=== PATIENT | male | born 1985 | race Caucasian/White ===

== ENCOUNTER 2019-09-01 19:29 | Inpatient (IN) | payer OTHER ==
[~2019-09-01 19:29] MED LIST: Iopamidol 370 76% 100 ML VIAL ONE; Iopamidol-370 76% 500 ML 1 ML ONE; PHENYLEPHRINE-NS 100 MCG/ML 10 ML SYRINGE ONE; Rocuronium Bromide 10 MG/ML (10ML VIAL) ONE; Vecuronium 10 MG VIAL ONE
[2019-09-01] MEDS ORDERED: CEFAZOLIN 1 GM VIAL ONE (19:34)
[2019-09-01] MEDS ORDERED: Adacel (T-DAP) 0.5 ML SYRINGE ONE ×2 (19:35→19:39)
[2019-09-01 19:47] LABS: Hemoglobin 13.6 g/dL (14.0-18.0); Mean Corpuscular HGB CONC 34.8 g/dL (32.0-36.0); Mean Corpuscular Hemoglobin 30.8 pg (27.0-31.0); Mean Corpuscular Volume 88.4 fL (78.0-98.0); Mean Platelet Volume 7.1 fL (7.4-10.4); Platelet Count 314 thou/uL (130-400); RBC Distribution Width 11.3 % (11.5-14.5); Red Blood Cell (RBC) Count 4.42 mill/uL (4.70-6.10); White Blood Cell (WBC) Count 26.5 thou/uL (4.8-10.8)
[2019-09-01] MEDS ORDERED: fentaNYL Citrate/PF 2,000 MCG in Sodium Chloride 0.9% 60 ML IV SCH (19:49)
[2019-09-01] MEDS ORDERED: Fentanyl 100 MCG/2 ML VIAL ONE ×2 (19:53→20:56)
[2019-09-01] MEDS ORDERED: Succinylcholine Chloride 20 MG/ML 10 ml SYRINGE FS ONE (19:54)
[2019-09-01 19:55] LABS: INR-International Normal Ratio 1.1; PTT 25.7 sec (22.9-36.1); Prothrombin Time 13.7 sec (12.0-14.7)
[2019-09-01 19:58] LABS: Bacteria/HPF None Seen HPF (None Seen); Bilirubin Negative (Negative); Blood, Urine 3+ (Negative); Clarity Turbid (Clear); Glucose, Urine (Dipstick) Normal (Negative); Ketone, Urine Negative (Negative); Leukocyte 25 Leu/uL (Negative); Nitrite Negative (Negative); Protein, Urine (Dipstick) 100 mg/dL (Neg-Trace); RBC/HPF Greater than 50 HPF (0-3); Specific Gravity, Urine 1.025 (1.002-1.036); Squamous Epithelial 0-3 HPF (0-3); Urobilinogen Normal mg/dL (Less than 2); WBC/HPF 21-50 HPF (0-3)
[2019-09-01 19:59] LABS: ALT (SGPT) 217 U/L (8-55); AST (SGOT) 407 U/L (5-34); Albumin 3.8 g/dL (3.5-5.0); Alcohol Less than 10 mg/dL (Less than 10); Alkaline Phosphatase 118 U/L (40-110); Anion Gap 11 mmol/L (10-20); BUN (Urea Nitrogen) 23 mg/dL (8.9-20.6); Bilirubin, Total 0.4 mg/dL (0.2-1.2); Calc. Creatinine Clearance 0 mL/min (70-130); Calcium 8.4 mg/dL (7.8-10.44); Carbon Dioxide 24 mmol/L (22-29); Chloride 106 mmol/L (98-107); Estimated GFR-MDRD 80; Globulin 2.8 g/dL (2.4-3.5); Glucose 109 mg/dL (70-105); Lipase 33 U/L (8-78); Protein, Total 6.6 g/dL (6.0-8.3); Sodium 137 mmol/L (136-145)
[2019-09-01 20:03] LABS: Amphetamine Detected (NotDetected); Barbiturates Screen Not Detected (NotDetected); Benzodiazepine Screen Not Detected (NotDetected); Cocaine Metabolite Screen Not Detected (NotDetected); Medtox Control Line Valid? VALID (VALID); Medtox Reader # READER 4; Methadone Not Detected (NotDetected); Methamphetamine Detected (NotDetected); Opiate Screen Not Detected (NotDetected); Oxycodone Screen Not Detected (NotDetected); Phencyclidine (PCP) Not Detected (NotDetected); THC/Cannabinoid Screen Not Detected (NotDetected); Tricyclic Screen Not Detected (NotDetected)
[2019-09-01 20:07] LABS: Band 23 % (5-11); Eosinophils 1 % (0-10); Lymphocytes 9 % (21-51); MDiff Complete? YES; Monocytes 1 % (0-10); Neutrophil 62 % (42-75); Platelet Morphology Comment Appears Adequate; Polychromasia SLIGHT = 2-3 cells (100X) (0-2/hpf); Reactive Lymphocytes 4 % (0-10)
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
[2019-09-01] MEDS ORDERED: Dextrose 5% in Water 1,000 ML IV PRN (20:27)
[2019-09-01] MEDS ORDERED: HumaLOG 300 UNITS/3 ML VIAL SC PRN (20:27)
[2019-09-01] MEDS ORDERED: Propofol 1,000 MG/100 ML VIAL IV ONE (20:27)
[2019-09-01] MEDS ORDERED: Dextrose 50% Abboject 50 ML SYRINGE SLOW IVP PRN (20:27)
[2019-09-01] MEDS ORDERED: Ondansetron PF 4 MG/2 ML Vial IVP PRN (20:27)
[2019-09-01] MEDS ORDERED: Ventilator Sedation Protocol 1 EACH FS ONE (20:30)
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
[2019-09-01] MEDS ORDERED: CEFAZOLIN 2 GM in Premix Bag 1 BAG IVPB SCH (20:45)
[2019-09-01 20:46] LABS: Actual Bicarbonate (HCO3a) 21.3 mEq/L (22-28); Analyzer IN Cardio ER; Base Excess (BEa) -4.3 mEq/L (-2.0 to +3.0); CO2 Tension 41.2 mmHg (35.0-45.0); Calcium, Ionized (arterial) 1.16 mmol/L (1.12-1.30); Carboxyhemoglobin (COHb) 0.4 gm% (0.0-3.0); Hemoglobin (Hb) 14.2 g/dL (14.0-18.0); Potassium - ABG Lab 3.94 mmol/L (3.70-5.30); pH, Arterial 7.33 (7.35-7.45)
[2019-09-01 20:47] LABS: O2 Tension (PaO2), arterial 514.8 mmHg (80.0-100.0); Puncture Site L FEMORAL
[2019-09-01] MEDS ORDERED: DISCONTINUE PREVIOUS NARCOTIC PAIN MEDICATIONS AND BENZODIAZEPINES FS SCH (20:48)
[2019-09-01] MEDS ORDERED: Propofol BOLUS 1,000 MG/100 ML VIAL IV PRN (20:48)
[2019-09-01] MEDS ORDERED: Fentanyl BOLUS 250 ML IVPB PRN (20:48)
[2019-09-01] MEDS ORDERED: Morphine 2 MG/ML VIAL SLOW IVP PRN (20:48)
[2019-09-01] MEDS ORDERED: Lorazepam 2 MG/ML VIAL SLOW IVP PRN (20:48)
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
[2019-09-01] MEDS ORDERED: Lidocaine 2% w/Epinephrine 1:200K 20 ML VIAL ONE (21:00)
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
--- NOTE | 2019-09-01 21:14 | RAD ---
LEFT WRIST RADIOGRAPHS THREE VIEWS: 09/01/19 PROVIDED CLINICAL HISTORY: Pain status post injury. FINDINGS: There is a markedly comminuted, mildly displaced intra-articular fracture involving the distal radius . There is a displaced ulnar styloid fracture. There is a comminuted displaced fracture which is intr a-articular involving the base of the thumb metacarpal. There is possible cortical irregularity invol ving the radial aspects of the scaphoid waist. This is seen on the oblique view and not reproduced on the additional views. IMPRESSION: 1. Distal radial and ulnar fractures as described. 2. Comminuted intra-articular base of thumb metacarpal fracture. 3. Possible nondisplaced scaphoid waist fracture. POS: CAROLYN
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
[2019-09-01] MEDS ORDERED: Bacitracin Zinc Ointment 30 gm TUBE ONE (23:43)
[2019-09-02] MEDS: Sodium Chloride 0.9% 1,000 ML IV SCH ×4 (00:35→23:55)
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
[2019-09-02] MEDS: Propofol 1,000 MG/100 ML VIAL IV PRN ×4 (02:13→23:49)
[2019-09-02] MEDS: CEFAZOLIN 2 GM in Premix Bag 1 BAG IVPB SCH ×2 (04:17→12:11)
[2019-09-02] MEDS: Famotidine/PF 20 mg/2ml Vial SLOW IVP SCH ×3 (04:18→12:10)
[2019-09-02 04:49] LABS: #Lymphocytes 0.8 thou/uL (1.20-3.40); #Neutrophils 13.8 thou/uL (1.40-6.50); %Basophils 0.1 % (0.0-1.0); %Monocytes 6.1 % (0.0-10.0); %Neutrophils 88.8 % (42.0-75.0); Hemoglobin 10.7 g/dL (14.0-18.0); Mean Corpuscular HGB CONC 34.1 g/dL (32.0-36.0); Mean Corpuscular Hemoglobin 30.5 pg (27.0-31.0); Mean Corpuscular Volume 89.5 fL (78.0-98.0); Mean Platelet Volume 6.9 fL (7.4-10.4); Platelet Count 218 thou/uL (130-400); RBC Distribution Width 11.4 % (11.5-14.5); Red Blood Cell (RBC) Count 3.51 mill/uL (4.70-6.10); White Blood Cell (WBC) Count 15.5 thou/uL (4.8-10.8)
[2019-09-02 05:08] LABS: Anion Gap 9 mmol/L (10-20); BUN (Urea Nitrogen) 20 mg/dL (8.9-20.6); Calc. Creatinine Clearance 134 mL/min (70-130); Calcium 7.4 mg/dL (7.8-10.44); Carbon Dioxide 25 mmol/L (22-29); Chloride 108 mmol/L (98-107); Estimated GFR-MDRD Greater than 90; Glucose 121 mg/dL (70-105); Potassium 4.1 mmol/L (3.5-5.1); Sodium 138 mmol/L (136-145)
[2019-09-02 05:10] LABS: ALT (SGPT) 159 U/L (8-55); AST (SGOT) 269 U/L (5-34); Alkaline Phosphatase 84 U/L (40-110); Bilirubin, Direct 0.3 mg/dL (0.1-0.3); Bilirubin, Total 0.4 mg/dL (0.2-1.2)
[2019-09-02] MEDS: fentaNYL Citrate/PF 2,000 MCG in Sodium Chloride 0.9% 60 ML IV SCH (05:19)
[2019-09-02] MEDS ORDERED: Fentanyl 100 MCG/2 ML VIAL SLOW IVP SCH (07:30)
[2019-09-02] MEDS ORDERED: Vecuronium 10 MG VIAL IVP SCH (07:30)
[2019-09-02] MEDS ORDERED: Midazolam HCl 2 mg/2 ml Vial SLOW IVP SCH (07:30)
[2019-09-02 07:33] LABS: Actual Bicarbonate (HCO3a) 23.7 mEq/L (22-28); Base Excess (BEa) -1.9 mEq/L (-2.0 to +3.0); CO2 Tension 44.2 mmHg (35.0-45.0); Calcium, Ionized (arterial) 1.06 mmol/L (1.12-1.30); Carboxyhemoglobin (COHb) 0.3 gm% (0.0-3.0); O2 Tension (PaO2), arterial 150.5 mmHg (80.0-100.0); Potassium - ABG Lab 3.86 mmol/L (3.70-5.30); pH, Arterial 7.35 (7.35-7.45)
[2019-09-02 07:44] LABS: Puncture Site L.B.
--- NOTE | 2019-09-02 07:49 | RAD ---
EXAM: 2 views of the right forearm HISTORY: Radius and ulnar fractures COMPARISON: 09/01/2019 at 8:17 PM FINDINGS/IMPRESSION: The patient is status post ORIF of fractures of the distal third of the radius a nd ulna with plates and screws. No perihardware lucency is seen.
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
--- NOTE | 2019-09-02 08:05 | RAD ---
RIGHT FEMUR 2 VIEWS: Date: 09/02/2019 HISTORY: Fracture right femoral shaft. FINDINGS/IMPRESSION: There has been interval reduction and internal fixation of the displaced fracture of the shaft of the right femur since earlier exam at 2023 hours with placement of an intramedullary mariposa and interlockin g screws. POS: OFF
[2019-09-02] MEDS ORDERED: PROPOFOL 200 MG/20 ML VIAL ONE (08:59)
[2019-09-02] MEDS ORDERED: Rocuronium Bromide 10 MG/ML (10ML VIAL) ONE (08:59)
[2019-09-02] MEDS ORDERED: Vecuronium 10 MG VIAL ONE ×2 (08:59→10:49)
[2019-09-02] MEDS ORDERED: PHENYLEPHRINE-NS 100 MCG/ML 10 ML SYRINGE ONE (08:59)
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
[2019-09-02] MEDS ORDERED: Midazolam HCl 2 mg/2 ml Vial ONE ×2 (10:35→23:11)
[2019-09-02] MEDS ORDERED: Lidocaine 1% w/Epinephrine 1:100K 20 ML VIAL ONE ×2 (10:35→16:23)
--- NOTE | 2019-09-02 14:23 | PRG ---
DATE OF SERVICE: 09/02/2019 This is Brandin Sadler PA-C dictating a report for Chris Pagan MD. SUBJECTIVE: I went to see patient this morning. He was intubated and sedated. OBSERVATIONS: VITAL SIGNS: Vital signs were stable. Pulse was little high at a low 100s, but afebrile. GENERAL: Again, he was intubated. When he is off his sedation, he is sitting up per the nurse, but right now, he is not following any commands. EXTREMITIES: He does retract his extremities to noxious stimuli. Dressings are all clean, dry, and intact. ASSESSMENT: Ortho, stable. PLAN: We will check on patient daily. Job ID: [id number]
[2019-09-02 14:28] LABS: SARS-CoV-2 MS2 Positive; SARS-CoV-2 N Gene Negative; SARS-CoV-2 S Gene Negative; SARS-CoV-2 by NAA Not Detected (NotDetected); SARS-CoV-2 orf1ab Negative
[2019-09-02] MEDS ORDERED: Hydrocortisone 1% Cream 30 GM TUBE ONE (16:23)
[2019-09-02] MEDS ORDERED: Chlorhexidine Gluconate 15 ML UDCUP SSP ONE (16:23)
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
[2019-09-02] MEDS ORDERED: Fentanyl 100 MCG/2 ML VIAL ONE ×2 (17:20→23:11)
[2019-09-02] MEDS ORDERED: Bacitracin Zinc Ointment 30 gm TUBE ONE (19:19)
[2019-09-02] MEDS ORDERED: Sodium Chloride 0.9% 10 ML ONE (19:19)
[2019-09-02] MEDS ORDERED: Bupivacaine PF 0.5% 30 ML VIAL ONE (19:19)
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
--- NOTE | 2019-09-02 23:44 | RAD ---
Exam: XR Wrist Lt 2 View HISTORY: ORIF left wrist COMPARISON: 09/01/2019 FINDINGS/IMPRESSION: 12 intraoperative fluoroscopic images of the left wrist are provided. Images demonstrate postoperativ e changes involving the distal left radial metaphysis with initial images demonstrate multiple pins in place in the distal radius with final image demonstrating a volar plate and multiple screws transf ixing the comminuted fracture distal left radial metaphysis. A single screw is seen extending through the scaphoid bone. 3 pins transfix the comminuted fracture base of the metacarpal thumb. Frac ture ulnar styloid process is again seen. Correlation intraoperative findings is recommended. Fluoroscopy: Time-232 seconds Dose-4.75 mGy
[2019-09-03 00:46] LABS: Hemoglobin 9.2 g/dL (14.0-18.0); Platelet Count 161 thou/uL (130-400)
[2019-09-03] MEDS: fentaNYL Citrate/PF 2,000 MCG in Sodium Chloride 0.9% 60 ML IV SCH ×2 (00:57→20:14)
[2019-09-03 00:59] LABS: Anion Gap 9 mmol/L (10-20); BUN (Urea Nitrogen) 15 mg/dL (8.9-20.6); Calc. Creatinine Clearance 146 mL/min (70-130); Carbon Dioxide 25 mmol/L (22-29); Chloride 111 mmol/L (98-107); Estimated GFR-MDRD Greater than 90; Glucose 138 mg/dL (70-105); Potassium 4.1 mmol/L (3.5-5.1); Sodium 141 mmol/L (136-145)
[2019-09-03] MEDS: Famotidine/PF 20 mg/2ml Vial SLOW IVP SCH ×3 (01:00→20:25)
[2019-09-03] MEDS: Vancomycin 1 GM in Premix Bag 1 BAG IVPB SCH ×2 (02:13→14:57)
[2019-09-03] MEDS: Propofol 1,000 MG/100 ML VIAL IV PRN ×2 (05:07→12:13)
[2019-09-03 05:39] LABS: CKMB 53.2 ng/mL (0-6.6)
[2019-09-03 08:02] LABS: Actual Bicarbonate (HCO3a) 27.2 mEq/L (22-28); Base Excess (BEa) 2.1 mEq/L (-2.0 to +3.0); CO2 Tension 44.9 mmHg (35.0-45.0); Calcium, Ionized (arterial) 0.99 mmol/L (1.12-1.30); Carboxyhemoglobin (COHb) 0.3 gm% (0.0-3.0); O2 Tension (PaO2), arterial 157.2 mmHg (80.0-100.0); Potassium - ABG Lab 3.78 mmol/L (3.70-5.30)
[2019-09-03] MEDS: Ascorbic Acid 500 mg Chewable Tablet PER TUBE SCH ×2 (09:53→20:25)
[2019-09-03] MEDS: Chlorhexidine Gluconate 15 ML UDCUP SSP SCH ×2 (09:54→20:25)
[2019-09-03] MEDS: Sodium Chloride 0.9% 1,000 ML IV SCH ×3 (09:54→20:42)
[2019-09-03 10:20] LABS: Actual Bicarbonate (HCO3a) 26.1 mEq/L (22-28); Base Excess (BEa) 1.4 mEq/L (-2.0 to +3.0); CO2 Tension 41.7 mmHg (35.0-45.0); Calcium, Ionized (arterial) 0.98 mmol/L (1.12-1.30); O2 Tension (PaO2), arterial 150.4 mmHg (80.0-100.0); Potassium - ABG Lab 3.76 mmol/L (3.70-5.30); pH, Arterial 7.42 (7.35-7.45)
[2019-09-03 10:21] LABS: ALV-art Gradient 2709.975 (0-20); Puncture Site L.B.
[2019-09-03 10:22] LABS: ALV-art Gradient 82.675 (0-20); Puncture Site L.B.
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
[2019-09-03] MEDS ORDERED: Calcium Chloride 13.6 MEQ in Sodium Chloride 0.9% 100 ML IVPB SCH (12:15)
[2019-09-03] MEDS ORDERED: Bacitracin Zinc Ointment 30 gm TUBE TOP PRN (13:48)
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
[2019-09-03] MEDS: Diazepam 5 MG TAB PO PRN (20:25)
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
[2019-09-04] MEDS ORDERED: Acetaminophen 650 MG/20.3 ML UDCUP PO PRN (00:52)
[2019-09-04] MEDS ORDERED: traMADol HCl 50 MG TAB PER TUBE PRN (00:56)
[2019-09-04] MEDS: Vancomycin 1 GM in Premix Bag 1 BAG IVPB SCH ×2 (01:29→14:33)
[2019-09-04] MEDS: Acetaminophen 650 MG/20.3 ML UDCUP PER TUBE SCH ×4 (01:29→18:38)
[2019-09-04] MEDS ORDERED: Haloperidol Lactate 5 MG/ML VIAL SLOW IVP SCH (02:45)
[2019-09-04] MEDS: Morphine 4 MG/ML VIAL SLOW IVP PRN ×5 (04:23→21:18)
[2019-09-04] MEDS: Sodium Chloride 0.9% 1,000 ML IV SCH ×2 (05:46→14:34)
[2019-09-04] MEDS: traMADol HCl 50 MG TAB PER TUBE SCH ×3 (05:47→18:16)
[2019-09-04] MEDS: Diazepam 5 MG TAB PO PRN ×2 (07:55→16:43)
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
[2019-09-04] MEDS: Famotidine/PF 20 mg/2ml Vial SLOW IVP SCH ×2 (08:30→20:52)
[2019-09-04] MEDS: Ascorbic Acid 500 mg Chewable Tablet PER TUBE SCH ×2 (08:30→20:53)
[2019-09-04] MEDS: Chlorhexidine Gluconate 15 ML UDCUP SSP SCH ×2 (08:30→20:52)
[2019-09-04] MEDS: Gabapentin 300 MG CAP PO SCH ×2 (08:30→20:52)
[2019-09-04] MEDS ORDERED: Sodium Bicarbonate Tab 325 MG TAB PER TUBE PRN (15:10)
[2019-09-04] MEDS ORDERED: Pancrelipase DR 12,000 1 CAP FS PRN (15:10)
[2019-09-04 16:54] LABS: #Lymphocytes 0.8 thou/uL (1.20-3.40); #Monocytes 0.5 thou/uL (0.11-0.59); #Neutrophils 6.1 thou/uL (1.40-6.50); %Basophils 0.5 % (0.0-1.0); %Eosinophils 0.3 % (0.0-10.0); %Lymphocytes 10.6 % (21.0-51.0); %Monocytes 6.6 % (0.0-10.0); %Neutrophils 82.1 % (42.0-75.0); Hemoglobin 6.2 g/dL (14.0-18.0); Mean Corpuscular HGB CONC 35.8 g/dL (32.0-36.0); Mean Corpuscular Hemoglobin 32.7 pg (27.0-31.0); Mean Corpuscular Volume 91.4 fL (78.0-98.0); Mean Platelet Volume 7.2 fL (7.4-10.4); Platelet Count 121 thou/uL (130-400); Red Blood Cell (RBC) Count 1.91 mill/uL (4.70-6.10); White Blood Cell (WBC) Count 7.5 thou/uL (4.8-10.8)
[2019-09-04 17:10] LABS: Anion Gap 9 mmol/L (10-20); BUN (Urea Nitrogen) 18 mg/dL (8.9-20.6); Calc. Creatinine Clearance 191 mL/min (70-130); Calcium 7.3 mg/dL (7.8-10.44); Carbon Dioxide 27 mmol/L (22-29); Chloride 109 mmol/L (98-107); Estimated GFR-MDRD Greater than 90; Glucose 149 mg/dL (70-105); Magnesium 1.8 mg/dL (1.6-2.6); Potassium 3.5 mmol/L (3.5-5.1); Sodium 141 mmol/L (136-145)
[2019-09-04 17:19] LABS: Phosphorus 1.7 mg/dL (2.3-4.7)
[2019-09-04] MEDS ORDERED: Magnesium Sulfate 4 GM in Sodium Chloride 0.9% 250 ML 250 ML IVPB SCH (17:45)
[2019-09-04] MEDS ORDERED: Potassium Phosphate 30 MMOL in Sodium Chloride 0.9% 250 ML 250 ML IVPB SCH (17:45)
[2019-09-04] MEDS ORDERED: cefTRIAXone\\ROCEPHIN 1 GM in Sodium Chloride 0.9% 100 ML IVPB SCH (18:00)
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
[2019-09-04] MEDS ORDERED: Morphine 2 MG/ML VIAL SLOW IVP PRN (21:01)
[2019-09-04] MEDS ORDERED: Calcium Chloride 1 GM/10 ML Abboject SYRINGE IVP SCH (21:15)
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
[2019-09-04 21:35] LABS: Hemoglobin 7.1 g/dL (14.0-18.0); Platelet Count 124 thou/uL (130-400)
[2019-09-05] MEDS: Piperacillin/Tazobactam 3.375 GM in Sodium Chloride 0.9% 100 ML IVPB SCH ×4 (00:06→18:20)
[2019-09-05] MEDS: Diazepam 5 MG TAB PO PRN ×4 (00:06→23:13)
[2019-09-05] MEDS: Sodium Chloride 0.9% 1,000 ML IV SCH ×2 (00:06→08:32)
[2019-09-05] MEDS: Acetaminophen 650 MG/20.3 ML UDCUP PER TUBE SCH ×5 (00:06→23:58)
[2019-09-05] MEDS: traMADol HCl 50 MG TAB PER TUBE SCH ×5 (00:07→23:58)
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
[2019-09-05] MEDS: Morphine 4 MG/ML VIAL SLOW IVP PRN ×6 (02:07→21:12)
[2019-09-05 04:02] LABS: #Lymphocytes 0.9 thou/uL (1.20-3.40); #Monocytes 0.6 thou/uL (0.11-0.59); #Neutrophils 5.7 thou/uL (1.40-6.50); %Basophils 0.4 % (0.0-1.0); %Eosinophils 0.5 % (0.0-10.0); %Lymphocytes 12.7 % (21.0-51.0); %Monocytes 7.5 % (0.0-10.0); %Neutrophils 78.9 % (42.0-75.0); Hemoglobin 6.9 g/dL (14.0-18.0); Mean Corpuscular HGB CONC 34.6 g/dL (32.0-36.0); Mean Corpuscular Hemoglobin 31.3 pg (27.0-31.0); Mean Corpuscular Volume 90.3 fL (78.0-98.0); Mean Platelet Volume 7.1 fL (7.4-10.4); Platelet Count 148 thou/uL (130-400); RBC Distribution Width 11.1 % (11.5-14.5); White Blood Cell (WBC) Count 7.3 thou/uL (4.8-10.8)
[2019-09-05 04:22] LABS: Anion Gap 8 mmol/L (10-20); BUN (Urea Nitrogen) 14 mg/dL (8.9-20.6); Calc. Creatinine Clearance 191 mL/min (70-130); Calcium 7.6 mg/dL (7.8-10.44); Carbon Dioxide 29 mmol/L (22-29); Chloride 111 mmol/L (98-107); Estimated GFR-MDRD Greater than 90; Glucose 139 mg/dL (70-105); Potassium 3.6 mmol/L (3.5-5.1); Sodium 144 mmol/L (136-145)
[2019-09-05 04:32] LABS: Phosphorus 1.6 mg/dL (2.3-4.7)
[2019-09-05] MEDS ORDERED: Potassium Phosphate 15 MMOL in Sodium Chloride 0.9% 250 ML 250 ML IVPB SCH (06:30)
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
[2019-09-05] MEDS: Chlorhexidine Gluconate 15 ML UDCUP SSP SCH ×2 (08:34→21:11)
[2019-09-05] MEDS: Famotidine/PF 20 mg/2ml Vial SLOW IVP SCH ×2 (08:34→21:11)
[2019-09-05] MEDS: Ascorbic Acid 500 mg Chewable Tablet PER TUBE SCH ×2 (08:34→21:11)
[2019-09-05] MEDS: Gabapentin 300 MG CAP PO SCH ×2 (08:34→21:11)
[2019-09-05] MEDS ORDERED: Iopamidol 370 76% 100 ML VIAL ONE (11:11)
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
--- NOTE | 2019-09-05 17:19 | OP ---
DATE OF PROCEDURE: 09/02/2019 PREOPERATIVE DIAGNOSES: Panfacial fracture, right mandibular parasymphyseal fracture displaced open. POSTOPERATIVE DIAGNOSES: Panfacial fracture, right mandibular parasymphyseal fracture displaced open. BRANCH ACCOUNT EXECUTIVE: Dr. Tino Joseph. ESTIMATED BLOOD LOSS: Less than 50 mL. ANESTHESIA: General endotracheal anesthesia. The patient currently has trach. FLUIDS: 1 L of isotonic crystalloid solution. SPECIMENS: None. FINDINGS: Right displaced open parasymphyseal fracture of the mandible extending between teeth #26 and #27. No mobility of dentition of the mandible was noted. DISPOSITION: PACU INDICATIONS FOR PROCEDURE: On day of surgery, discussed treatment options and recommendations with via telephone. Recommended multistaged approach with initial stage to include establishing lower third vertical pillars to include open reduction and internal fixation of right mandibular parasymphyseal fracture in the operating room. elected to continue with recommended procedure. Discussed risks, benefits, indications, alternatives with . DESCRIPTION OF PROCEDURE: The patient was transferred to operating room C and placed on the operating room table in supine position. Cardiopulmonary monitors were applied. The patient was deemed a good candidate to undergo general anesthesia. He was induced in state of general anesthesia. The patient was prepped and draped in standard sterile fashion. Peridex oral rinse scrub was performed. Throat pack was placed. We turned our attention to the maxilla with the application of Petros arch bars using 24-gauge stainless steel wires. Petros arch bars were applied to the maxillary dentition and to the mandibular dentition. Tooth #30 noted to have a localized abscess with mild mobility, elected to extract tooth #30, using a 15 blade made a sulcular incision along site #30. Minimal full-thickness periosteal dissection was performed using a surgical handpiece with a 1.6 fissure bur under sterile saline irrigation, sectioned tooth #30, delivered tooth #30 with elevators, curettage of site, bone file, and saline irrigation. Anesthesia was replaced. Next, we turned our attention to the right mandibular anterior vestibule. Using a Bovie cautery set at 20/20 blend, we made an incision approximately 1 cm anterior to the mucogingival junction through mucosa down through underlying muscle through underlying periosteum. Full-thickness mucoperiosteal dissection was performed. Mental nerve was identified. Skeletonization of mental nerve was performed. The patient was placed in maxillary mandibular fixation. Occlusion was noted to be good when applied into MMF. Next, using one 4-hole titanium plate as a tension band, plate along the superior border placed 6 mm monocortical screws. Next, using a 1.5 mm 6-hole plate placed along the inferior border using bicortical fixation with 4 titanium screws was performed. The patient was released from MMF, occlusion noted to be stable. Copious sterile saline irrigation of surgical site. Then, using 4-0 Vicryl sutures, reapproximated the mentalis muscle in submucosal reapproximation and closed with multiple interrupted in the continuous running suture along the mucosa using 4-0 chromic gut. At this point, procedure was deemed complete. The patient was transferred to the PACU in stable condition. Job ID: [id number]
[2019-09-05 19:44] LABS: Hemoglobin 7.8 g/dL (14.0-18.0); Platelet Count 173 thou/uL (130-400)
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
[2019-09-05] MEDS ORDERED: Haloperidol Lactate 5 MG/ML VIAL IM SCH (23:45)
[2019-09-06 00:07] LABS: Hemoglobin 8.1 g/dL (14.0-18.0); Platelet Count 186 thou/uL (130-400)
[2019-09-06 01:01] LABS: CKMB 18.4 ng/mL (0-6.6); Critical Call CKMB RESULT DECREASING
[2019-09-06] MEDS ORDERED: diphenhydrAMINE 50 MG/ML VIAL IVP SCH (01:45)
[2019-09-06] MEDS: Morphine 4 MG/ML VIAL SLOW IVP PRN ×4 (01:50→17:36)
[2019-09-06 04:33] LABS: #Lymphocytes 1.1 thou/uL (1.20-3.40); #Monocytes 0.8 thou/uL (0.11-0.59); #Neutrophils 7.6 thou/uL (1.40-6.50); %Basophils 0.2 % (0.0-1.0); %Eosinophils 0.5 % (0.0-10.0); %Monocytes 8.6 % (0.0-10.0); %Neutrophils 79.7 % (42.0-75.0); Hemoglobin 7.9 g/dL (14.0-18.0); Mean Corpuscular HGB CONC 33.7 g/dL (32.0-36.0); Mean Corpuscular Hemoglobin 30.5 pg (27.0-31.0); Mean Corpuscular Volume 90.5 fL (78.0-98.0); Mean Platelet Volume 6.8 fL (7.4-10.4); Platelet Count 203 thou/uL (130-400); RBC Distribution Width 11.4 % (11.5-14.5); White Blood Cell (WBC) Count 9.6 thou/uL (4.8-10.8)
[2019-09-06 04:54] LABS: Anion Gap 8 mmol/L (10-20); BUN (Urea Nitrogen) 11 mg/dL (8.9-20.6); Calc. Creatinine Clearance 207 mL/min (70-130); Calcium 7.8 mg/dL (7.8-10.44); Carbon Dioxide 29 mmol/L (22-29); Chloride 110 mmol/L (98-107); Estimated GFR-MDRD Greater than 90; Glucose 128 mg/dL (70-105); Magnesium 1.8 mg/dL (1.6-2.6); Potassium 3.1 mmol/L (3.5-5.1); Sodium 144 mmol/L (136-145)
[2019-09-06 04:57] LABS: Phosphorus 2.1 mg/dL (2.3-4.7)
[2019-09-06] MEDS: Acetaminophen 650 MG/20.3 ML UDCUP PER TUBE SCH ×3 (05:52→20:02)
[2019-09-06] MEDS: traMADol HCl 50 MG TAB PER TUBE SCH ×3 (05:52→17:35)
[2019-09-06] MEDS ORDERED: Potassium Phosphate 30 MMOL, Magnesium Sulfate 2 GM in Sodium Chloride 0.9% 250 ML 250 ML IVPB SCH ×2 (06:30→08:30)
[2019-09-06] MEDS ORDERED: Magnesium 2 GM/50 ML 2 GM in Premix Bag 1 BAG IVPB SCH (06:30)
--- NOTE | 2019-09-06 07:42 | RAD ---
EXAM: Single view of the chest HISTORY: Pneumonia COMPARISON: CT abdomen/pelvis 09/05/2019 FINDINGS: Single view of the chest shows a normal sized cardiomediastinal silhouette. A tracheostomy is seen in good position in the trachea. A left subclavian central venous catheter seen with its tip in the superior vena cava. There is free air beneath the right hemidiaphragm. The gastrostomy tub e is not definitely seen on this exam. Opacity in the left lung base likely represents a pleural effusion and adjacent atelectasis. Post surgical changes seen in the left clavicle. IMPRESSION: 1. Stable free air beneath the diaphragm. 2. Left pleural effusion with adjacent atelectasis
[2019-09-06] MEDS: Famotidine/PF 20 mg/2ml Vial SLOW IVP SCH ×2 (09:18→20:03)
[2019-09-06] MEDS: Ascorbic Acid 500 mg Chewable Tablet PER TUBE SCH ×2 (09:19→20:03)
[2019-09-06] MEDS: Chlorhexidine Gluconate 15 ML UDCUP SSP SCH ×2 (09:19→20:03)
[2019-09-06] MEDS: Enoxaparin Sodium 40 MG/0.4 ML SYRINGE SC SCH (09:19)
[2019-09-06] MEDS: Diazepam 5 MG TAB PO PRN (09:20)
[2019-09-06] MEDS: Gabapentin 300 MG CAP PO SCH ×2 (09:20→20:03)
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
[2019-09-06] MEDS: Piperacillin/Tazobactam 3.375 GM in Sodium Chloride 0.9% 100 ML IVPB SCH (17:36)
[2019-09-06] MEDS: clonazePAM 0.5 MG TAB PO SCH ×2 (17:36→20:03)
[2019-09-06] MEDS ORDERED: SMX/TMP 800-160mg/20 ML UDCUP PO SCH (21:00)
[2019-09-06] MEDS ORDERED: Senokot 8.6 MG TAB PO SCH (21:00)
[2019-09-07] MEDS: Piperacillin/Tazobactam 3.375 GM in Sodium Chloride 0.9% 100 ML IVPB SCH ×4 (00:24→17:32)
[2019-09-07] MEDS: traMADol HCl 50 MG TAB PER TUBE SCH ×4 (00:25→17:31)
[2019-09-07] MEDS: Acetaminophen 650 MG/20.3 ML UDCUP PER TUBE SCH ×4 (00:25→20:30)
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
[2019-09-07] MEDS ORDERED: Polyethylene Glycol 3350 17 GM Packet PER TUBE SCH (09:00)
[2019-09-07] MEDS: clonazePAM 0.5 MG TAB PO SCH ×3 (09:01→20:32)
[2019-09-07] MEDS: Ascorbic Acid 500 mg Chewable Tablet PER TUBE SCH ×2 (09:01→20:33)
[2019-09-07] MEDS: Gabapentin 300 MG CAP PO SCH ×2 (09:01→20:33)
[2019-09-07] MEDS: Chlorhexidine Gluconate 15 ML UDCUP SSP SCH ×2 (09:02→20:36)
[2019-09-07] MEDS: Enoxaparin Sodium 40 MG/0.4 ML SYRINGE SC SCH (09:02)
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
[2019-09-07] MEDS: Morphine 4 MG/ML VIAL SLOW IVP PRN (20:37)
[2019-09-08] MEDS: Piperacillin/Tazobactam 3.375 GM in Sodium Chloride 0.9% 100 ML IVPB SCH ×3 (00:14→12:33)
[2019-09-08] MEDS: Acetaminophen 650 MG/20.3 ML UDCUP PER TUBE SCH ×4 (00:15→19:46)
[2019-09-08] MEDS: traMADol HCl 50 MG TAB PER TUBE SCH ×4 (00:15→17:27)
[2019-09-08 03:44] LABS: #Eosinphils 0.3 thou/uL (0.0-0.7); #Lymphocytes 1.5 thou/uL (1.20-3.40); #Monocytes 0.8 thou/uL (0.11-0.59); #Neutrophils 5.9 thou/uL (1.40-6.50); %Basophils 0.2 % (0.0-1.0); %Eosinophils 3.8 % (0.0-10.0); %Lymphocytes 17.2 % (21.0-51.0); %Monocytes 9.7 % (0.0-10.0); %Neutrophils 69.2 % (42.0-75.0); Mean Corpuscular HGB CONC 32.6 g/dL (32.0-36.0); Mean Corpuscular Hemoglobin 30.2 pg (27.0-31.0); Mean Corpuscular Volume 92.5 fL (78.0-98.0); Mean Platelet Volume 6.6 fL (7.4-10.4); Platelet Count 311 thou/uL (130-400); RBC Distribution Width 11.9 % (11.5-14.5); Red Blood Cell (RBC) Count 2.97 mill/uL (4.70-6.10); White Blood Cell (WBC) Count 8.5 thou/uL (4.8-10.8)
[2019-09-08 04:25] LABS: Anion Gap 8 mmol/L (10-20); BUN (Urea Nitrogen) 15 mg/dL (8.9-20.6); Calc. Creatinine Clearance 220 mL/min (70-130); Calcium 8.2 mg/dL (7.8-10.44); Carbon Dioxide 29 mmol/L (22-29); Chloride 105 mmol/L (98-107); Estimated GFR-MDRD Greater than 90; Glucose 148 mg/dL (70-105); Magnesium 1.8 mg/dL (1.6-2.6); Phosphorus 3.9 mg/dL (2.3-4.7); Potassium 3.1 mmol/L (3.5-5.1); Sodium 139 mmol/L (136-145)
[2019-09-08] MEDS: Enoxaparin Sodium 40 MG/0.4 ML SYRINGE SC SCH (08:22)
[2019-09-08] MEDS: Gabapentin 300 MG CAP PO SCH ×2 (08:22→19:46)
[2019-09-08] MEDS: Ascorbic Acid 500 mg Chewable Tablet PER TUBE SCH ×2 (08:22→19:45)
[2019-09-08] MEDS: clonazePAM 0.5 MG TAB PO SCH ×3 (08:25→19:46)
[2019-09-08] MEDS: Chlorhexidine Gluconate 15 ML UDCUP SSP SCH ×2 (08:25→19:46)
[2019-09-08] MEDS ORDERED: Potassium Chloride 40 MEQ, Magnesium Sulfate 2 GM in Sodium Chloride 0.9% 250 ML 250 ML IVPB SCH (08:45)
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
--- NOTE | 2019-09-08 15:59 | EKG ---
Test Reason : FILIBERTO Blood Pressure : / mmHG Vent. Rate : 107 BPM Atrial Rate : 107 BPM P-R Int : 130 ms QRS Dur : 084 ms QT Int : 362 ms P-R-T Axes : 061 081 058 degrees QTc Int : [address] elevation consider inferior injury or acute infarct vs pericarditis vs early repol. Abnormal ECG When compared with ECG of 01-SEP-2019 20:15, (Unconfirmed) No significant change was found Confirmed by BRANDIE NICOLE M.D. ([id number]) on 09/08/2019 3:59:03 PM Referred By: ANNY Confirmed By:BRANDIE NICOLE M.D.
[2019-09-08] MEDS ORDERED: cefTRIAXone\\ROCEPHIN 1 GM in Sodium Chloride 0.9% 100 ML IVPB SCH (17:00)
[2019-09-09] MEDS: traMADol HCl 50 MG TAB PER TUBE SCH ×5 (00:16→23:01)
[2019-09-09] MEDS: Acetaminophen 650 MG/20.3 ML UDCUP PER TUBE SCH ×4 (00:16→19:06)
[2019-09-09 04:12] LABS: #Eosinphils 0.4 thou/uL (0.0-0.7); #Lymphocytes 1.9 thou/uL (1.20-3.40); #Neutrophils 8.8 thou/uL (1.40-6.50); %Basophils 0.4 % (0.0-1.0); %Eosinophils 3.2 % (0.0-10.0); %Lymphocytes 15.4 % (21.0-51.0); %Monocytes 8.4 % (0.0-10.0); %Neutrophils 72.7 % (42.0-75.0); Hemoglobin 10.1 g/dL (14.0-18.0); Mean Corpuscular HGB CONC 32.6 g/dL (32.0-36.0); Mean Platelet Volume 6.5 fL (7.4-10.4); Platelet Count 398 thou/uL (130-400); Red Blood Cell (RBC) Count 3.36 mill/uL (4.70-6.10); White Blood Cell (WBC) Count 12.1 thou/uL (4.8-10.8)
[2019-09-09 04:31] LABS: Anion Gap 11 mmol/L (10-20); BUN (Urea Nitrogen) 15 mg/dL (8.9-20.6); Calc. Creatinine Clearance 216 mL/min (70-130); Calcium 8.5 mg/dL (7.8-10.44); Carbon Dioxide 27 mmol/L (22-29); Chloride 103 mmol/L (98-107); Estimated GFR-MDRD Greater than 90; Glucose 105 mg/dL (70-105); Magnesium 1.9 mg/dL (1.6-2.6); Phosphorus 3.8 mg/dL (2.3-4.7); Potassium 4.2 mmol/L (3.5-5.1); Sodium 137 mmol/L (136-145)
[2019-09-09] MEDS ORDERED: Magnesium Sulfate 3 GM in Sodium Chloride 0.9% 250 ML 250 ML IVPB SCH (06:45)
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
[2019-09-09] MEDS ORDERED: PROPOFOL 200 MG/20 ML VIAL ONE (09:36)
[2019-09-09] MEDS ORDERED: PHENYLEPHRINE-NS 100 MCG/ML 10 ML SYRINGE ONE (09:36)
[2019-09-09] MEDS: Enoxaparin Sodium 40 MG/0.4 ML SYRINGE SC SCH (09:52)
[2019-09-09] MEDS: Chlorhexidine Gluconate 15 ML UDCUP SSP SCH ×2 (09:57→23:00)
[2019-09-09] MEDS: Ascorbic Acid 500 mg Chewable Tablet PER TUBE SCH ×2 (09:57→23:00)
[2019-09-09] MEDS: Gabapentin 300 MG CAP PO SCH ×2 (09:57→23:00)
[2019-09-09] MEDS: clonazePAM 0.5 MG TAB PO SCH ×3 (09:58→23:00)
[2019-09-09] MEDS ORDERED: Calcium Carbonate 500 MG ChewTAB PO PRN (11:41)
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
[2019-09-09] MEDS ORDERED: Fentanyl 250 MCG/5 ML VIAL ONE ×2 (16:38→18:29)
[2019-09-09] MEDS: cefTRIAXone\\ROCEPHIN 2 GM in Sodium Chloride 0.9% 100 ML IVPB SCH (16:38)
[2019-09-09] MEDS ORDERED: Lidocaine 1% w/Epinephrine 1:100K 20 ML VIAL ONE (16:45)
[2019-09-09] MEDS ORDERED: Chlorhexidine Gluconate 15 ML UDCUP SSP ONE (16:45)
[2019-09-09] MEDS ORDERED: Hydrocortisone 1% Cream 30 GM TUBE ONE (16:45)
[2019-09-09] MEDS ORDERED: Phenylephrine 10 MG/ML VIAL ONE ×2 (17:55→18:30)
[2019-09-09] MEDS ORDERED: AFRIN NASAL MIST 15 ML BOT ONE (18:18)
[2019-09-09] MEDS ORDERED: Bacitracin Zinc Ointment 30 gm TUBE ONE (18:18)
[2019-09-09] MEDS ORDERED: Ondansetron HCl/PF 4 MG/2 ML Vial IVP PRN (20:31)
[2019-09-09] MEDS ORDERED: HYDROmorphone 2 MG/ML VIAL SLOW IVP PRN (20:31)
[2019-09-09] MEDS ORDERED: Promethazine HCl 25 MG/ML VIAL SLOW IVP PRN (20:31)
[2019-09-09] MEDS ORDERED: Fentanyl 100 MCG/2 ML VIAL ONE (21:54)
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
[2019-09-09] MEDS: Morphine 4 MG/ML VIAL SLOW IVP PRN (23:14)
[2019-09-10] MEDS ORDERED: traMADol HCl 50 MG TAB PER TUBE SCH (00:45)
[2019-09-10] MEDS: Acetaminophen 650 MG/20.3 ML UDCUP PER TUBE SCH ×4 (00:46→16:25)
[2019-09-10 03:07] LABS: #Eosinphils 0.1 thou/uL (0.0-0.7); #Lymphocytes 1.8 thou/uL (1.20-3.40); #Monocytes 1.3 thou/uL (0.11-0.59); #Neutrophils 12.4 thou/uL (1.40-6.50); %Basophils 0.2 % (0.0-1.0); %Eosinophils 0.8 % (0.0-10.0); %Lymphocytes 11.2 % (21.0-51.0); %Monocytes 8.6 % (0.0-10.0); %Neutrophils 79.2 % (42.0-75.0); Hemoglobin 9.6 g/dL (14.0-18.0); Mean Corpuscular HGB CONC 33.4 g/dL (32.0-36.0); Mean Corpuscular Hemoglobin 30.7 pg (27.0-31.0); Mean Corpuscular Volume 91.9 fL (78.0-98.0); Mean Platelet Volume 6.6 fL (7.4-10.4); Platelet Count 436 thou/uL (130-400); RBC Distribution Width 12.1 % (11.5-14.5); Red Blood Cell (RBC) Count 3.14 mill/uL (4.70-6.10); White Blood Cell (WBC) Count 15.6 thou/uL (4.8-10.8)
[2019-09-10 03:32] LABS: Anion Gap 11 mmol/L (10-20); BUN (Urea Nitrogen) 19 mg/dL (8.9-20.6); Calc. Creatinine Clearance 177 mL/min (70-130); Calcium 8.4 mg/dL (7.8-10.44); Carbon Dioxide 27 mmol/L (22-29); Chloride 101 mmol/L (98-107); Estimated GFR-MDRD Greater than 90; Glucose 156 mg/dL (70-105); Phosphorus 3.7 mg/dL (2.3-4.7); Potassium 4.4 mmol/L (3.5-5.1); Sodium 135 mmol/L (136-145)
[2019-09-10] MEDS: Morphine 4 MG/ML VIAL SLOW IVP PRN (04:21)
[2019-09-10] MEDS: traMADol HCl 50 MG TAB PER TUBE SCH ×3 (06:07→16:24)
[2019-09-10 06:13] VITALS: BMI 23.8
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
[2019-09-10] MEDS: Ascorbic Acid 500 mg Chewable Tablet PER TUBE SCH ×2 (11:12→22:08)
[2019-09-10] MEDS: cloNIDine 0.1 MG TAB PO SCH ×3 (11:12→22:07)
[2019-09-10] MEDS: Chlorhexidine Gluconate 15 ML UDCUP SSP SCH ×2 (11:12→22:08)
[2019-09-10] MEDS: clonazePAM 0.5 MG TAB PO SCH ×3 (11:12→22:08)
[2019-09-10] MEDS: Gabapentin 300 MG CAP PO SCH ×2 (11:12→22:07)
[2019-09-10] MEDS: Enoxaparin Sodium 40 MG/0.4 ML SYRINGE SC SCH (11:13)
[2019-09-10] MEDS: Bacitracin Zinc Ointment 30 gm TUBE TOP SCH ×3 (11:14→22:09)
[2019-09-10] MEDS: cefTRIAXone\\ROCEPHIN 2 GM in Sodium Chloride 0.9% 100 ML IVPB SCH (16:23)
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
[2019-09-10 18:56] LABS: #Eosinphils 0.2 thou/uL (0.0-0.7); #Lymphocytes 1.8 thou/uL (1.20-3.40); #Monocytes 1.5 thou/uL (0.11-0.59); #Neutrophils 13.6 thou/uL (1.40-6.50); %Basophils 0.2 % (0.0-1.0); %Lymphocytes 10.4 % (21.0-51.0); %Monocytes 8.9 % (0.0-10.0); %Neutrophils 79.6 % (42.0-75.0); Hemoglobin 9.8 g/dL (14.0-18.0); Mean Corpuscular HGB CONC 34.1 g/dL (32.0-36.0); Mean Corpuscular Hemoglobin 31.6 pg (27.0-31.0); Mean Corpuscular Volume 92.5 fL (78.0-98.0); Mean Platelet Volume 6.5 fL (7.4-10.4); Platelet Count 440 thou/uL (130-400); RBC Distribution Width 12.2 % (11.5-14.5); Red Blood Cell (RBC) Count 3.09 mill/uL (4.70-6.10); White Blood Cell (WBC) Count 17.1 thou/uL (4.8-10.8)
[2019-09-11] MEDS: traMADol HCl 50 MG TAB PER TUBE SCH ×4 (00:06→18:37)
[2019-09-11] MEDS: Acetaminophen 650 MG/20.3 ML UDCUP PER TUBE SCH ×4 (00:07→21:47)
[2019-09-11] MEDS: cloNIDine 0.1 MG TAB PO SCH ×4 (05:04→20:51)
[2019-09-11 06:05] LABS: Magnesium 1.8 mg/dL (1.6-2.6); Phosphorus 4.2 mg/dL (2.3-4.7)
[2019-09-11] MEDS: Gabapentin 300 MG CAP PO SCH ×2 (08:07→20:52)
[2019-09-11] MEDS: Ascorbic Acid 500 mg Chewable Tablet PER TUBE SCH ×2 (08:07→20:52)
[2019-09-11] MEDS: clonazePAM 0.5 MG TAB PO SCH ×3 (08:07→20:51)
[2019-09-11] MEDS: Enoxaparin Sodium 40 MG/0.4 ML SYRINGE SC SCH (08:07)
[2019-09-11] MEDS: Chlorhexidine Gluconate 15 ML UDCUP SSP SCH ×2 (08:08→20:51)
[2019-09-11] MEDS: Bacitracin Zinc Ointment 30 gm TUBE TOP SCH ×3 (08:08→20:56)
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
[2019-09-11] MEDS: cefTRIAXone\\ROCEPHIN 2 GM in Sodium Chloride 0.9% 100 ML IVPB SCH (17:25)
[2019-09-11] MEDS: Dexamethasone 4 mg/ml Vial SLOW IVP SCH (18:38)
[2019-09-12] MEDS: Acetaminophen 650 MG/20.3 ML UDCUP PER TUBE SCH ×4 (00:06→18:13)
[2019-09-12] MEDS: Dexamethasone 4 mg/ml Vial SLOW IVP SCH ×3 (00:07→12:53)
[2019-09-12] MEDS: traMADol HCl 50 MG TAB PER TUBE SCH ×4 (00:07→18:13)
[2019-09-12] MEDS: Cyclobenzaprine 10 MG TAB PO PRN ×2 (01:28→22:17)
[2019-09-12] MEDS: cloNIDine 0.1 MG TAB PO SCH ×4 (05:18→22:17)
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
[2019-09-12] MEDS: Gabapentin 300 MG CAP PO SCH ×2 (10:25→22:17)
[2019-09-12] MEDS: Ascorbic Acid 500 mg Chewable Tablet PER TUBE SCH ×2 (10:25→22:16)
[2019-09-12] MEDS: Chlorhexidine Gluconate 15 ML UDCUP SSP SCH ×3 (10:26→22:16)
[2019-09-12] MEDS: Enoxaparin Sodium 40 MG/0.4 ML SYRINGE SC SCH (10:26)
[2019-09-12] MEDS: clonazePAM 0.5 MG TAB PO SCH ×3 (10:26→22:16)
[2019-09-12] MEDS: Bacitracin Zinc Ointment 30 gm TUBE TOP SCH ×3 (10:28→22:16)
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
[2019-09-12] MEDS: cefTRIAXone\\ROCEPHIN 2 GM in Sodium Chloride 0.9% 100 ML IVPB SCH (16:06)
[2019-09-12] MEDS: Melatonin 3 MG TAB PO PRN (22:17)
[2019-09-13] MEDS: Acetaminophen 650 MG/20.3 ML UDCUP PER TUBE SCH ×4 (00:21→17:47)
[2019-09-13] MEDS: traMADol HCl 50 MG TAB PER TUBE SCH ×3 (00:21→12:54)
[2019-09-13] MEDS: cloNIDine 0.1 MG TAB PO SCH ×4 (04:32→21:00)
[2019-09-13] MEDS: Cyclobenzaprine 10 MG TAB PO PRN ×2 (05:52→17:50)
[2019-09-13] MEDS: Enoxaparin Sodium 40 MG/0.4 ML SYRINGE SC SCH (09:36)
[2019-09-13] MEDS: Chlorhexidine Gluconate 15 ML UDCUP SSP SCH ×2 (09:37→20:47)
[2019-09-13] MEDS: Gabapentin 300 MG CAP PO SCH (09:37)
[2019-09-13] MEDS: clonazePAM 0.5 MG TAB PO SCH ×3 (09:38→20:47)
[2019-09-13] MEDS: Ascorbic Acid 500 mg Chewable Tablet PER TUBE SCH ×2 (09:38→20:47)
[2019-09-13] MEDS: Bacitracin Zinc Ointment 30 gm TUBE TOP SCH ×3 (09:39→23:45)
[2019-09-13] MEDS: Pantoprazole 40 MG GRANULES PACKET PO SCH (12:57)
[2019-09-13] MEDS ORDERED: traMADol HCl 50 MG TAB PER TUBE PRN (13:50)
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
[2019-09-13] MEDS: cefTRIAXone\\ROCEPHIN 2 GM in Sodium Chloride 0.9% 100 ML IVPB SCH (16:14)
[2019-09-13] MEDS ORDERED: Sodium Chloride 0.65% Nasal 44 ML BOT EA NARE PRN (17:09)
[2019-09-13] MEDS ORDERED: Pseudoephedrine HCl 30 MG TAB PO PRN (17:09)
[2019-09-13] MEDS ORDERED: Oxymetazoline HCl 0.05% (30 ML BOT) NS PRN (17:21)
[2019-09-13] MEDS: Gabapentin 100 MG CAP PO SCH (20:47)
[2019-09-13] MEDS: Melatonin 3 MG TAB PO PRN (20:47)
[2019-09-13] MEDS: Acetaminophen/Codeine 120-12MG/5 ML UDCUP PO PRN (20:48)
[2019-09-13] MEDS ORDERED: Haloperidol Lactate 5 MG/ML VIAL ONE (22:35)
[2019-09-13] MEDS ORDERED: Haloperidol Lactate 5 MG/ML VIAL IM SCH (22:45)
[2019-09-13] MEDS ORDERED: diphenhydrAMINE 50 MG/ML VIAL IM PRN (23:23)
[2019-09-14] MEDS: Acetaminophen 650 MG/20.3 ML UDCUP PER TUBE SCH ×4 (01:19→17:25)
[2019-09-14] MEDS: Acetaminophen/Codeine 120-12MG/5 ML UDCUP PO PRN (02:36)
[2019-09-14] MEDS: cloNIDine 0.1 MG TAB PO SCH ×3 (05:02→17:18)
[2019-09-14] MEDS: Ascorbic Acid 500 mg Chewable Tablet PER TUBE SCH (07:46)
[2019-09-14] MEDS: Chlorhexidine Gluconate 15 ML UDCUP SSP SCH (07:46)
[2019-09-14] MEDS: Pantoprazole 40 MG GRANULES PACKET PO SCH (07:46)
[2019-09-14] MEDS: Gabapentin 100 MG CAP PO SCH (07:46)
[2019-09-14] MEDS: clonazePAM 0.5 MG TAB PO SCH ×2 (07:46→17:18)
[2019-09-14] MEDS: Enoxaparin Sodium 40 MG/0.4 ML SYRINGE SC SCH (07:47)
[2019-09-14] MEDS: Bacitracin Zinc Ointment 30 gm TUBE TOP SCH ×2 (07:57→17:18)
[2019-09-14 11:39] VITALS: TEMP 98.3
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
[2019-09-14 17:19] VITALS: BP 123/80
[2019-09-14] MEDS: Cyclobenzaprine 10 MG TAB PO PRN (17:24)
[2019-09-14] MEDS ORDERED: Oxymetazoline HCl 0.05% (30 ML BOT) NS PRN (17:42)
== END 2019-09-14 18:27 | disposition home or self-care (01) | DRG 3 ==
LOC: EDBD 19:29 → ERS 19:29 → IMCU/EMU 21:19 → CCU 21:19 → SDC/OP 21:34 → CCU 23:00 → IMCU/EMU 09-05 20:15 → SJJU 09-11 12:17 → SURG A 09-11 15:30
PROVIDERS: ADMIT Specialist; ATTEND Specialist
PROC: 0QS806Z Reposition Right Femoral Shaft with Intramedullary Internal Fixation Device, Open Approach (ICD-10-PCS; 2019-09-01)
PROC: 5A1955Z Respiratory Ventilation, Greater than 96 Consecutive Hours (ICD-10-PCS; 2019-09-01)
PROC: 0PSH04Z Reposition Right Radius with Internal Fixation Device, Open Approach (ICD-10-PCS; 2019-09-01)
PROC: 0PSK04Z Reposition Right Ulna with Internal Fixation Device, Open Approach (ICD-10-PCS; 2019-09-01)
PROC: 0PSHXZZ Reposition Right Radius, External Approach (ICD-10-PCS; 2019-09-01)
PROC: 0QSCXZZ Reposition Left Lower Femur, External Approach (ICD-10-PCS; 2019-09-01)
PROC: 0B113F4 Bypass Trachea to Cutaneous with Tracheostomy Device, Percutaneous Approach (ICD-10-PCS; principal; 2019-09-02)
PROC: 0PSS34Z Reposition Left Thumb Phalanx with Internal Fixation Device, Percutaneous Approach (ICD-10-PCS; 2019-09-02)
PROC: 0PSJ04Z Reposition Left Radius with Internal Fixation Device, Open Approach (ICD-10-PCS; 2019-09-02)
PROC: 0PSN04Z Reposition Left Carpal with Internal Fixation Device, Open Approach (ICD-10-PCS; 2019-09-02)
PROC: 0DH63UZ Insertion of Feeding Device into Stomach, Percutaneous Approach (ICD-10-PCS; 2019-09-02)
PROC: 0NST04Z Reposition Right Mandible with Internal Fixation Device, Open Approach (ICD-10-PCS; 2019-09-04)
PROC: 0CDWXZ0 Extraction of Upper Tooth, Single, External Approach (ICD-10-PCS; 2019-09-04)
PROC: 30233N1 Transfusion of Nonautologous Red Blood Cells into Peripheral Vein, Percutaneous Approach (ICD-10-PCS; 2019-09-04)
PROC: 0NS104Z Reposition Frontal Bone with Internal Fixation Device, Open Approach (ICD-10-PCS; 2019-09-09)
PROC: 0NSP04Z Reposition Right Orbit with Internal Fixation Device, Open Approach (ICD-10-PCS; 2019-09-09)
PROC: 0NSR04Z Reposition Maxilla with Internal Fixation Device, Open Approach (ICD-10-PCS; 2019-09-09)
PROC: 0NSB04Z Reposition Nasal Bone with Internal Fixation Device, Open Approach (ICD-10-PCS; 2019-09-09)
PROC: BD12YZZ Fluoroscopy of Stomach using Other Contrast (ICD-10-PCS; 2019-09-09)
DX: S52.691B Other fracture of lower end of right ulna, initial encounter for open fracture type I or II (principal); S72.351A Displaced comminuted fracture of shaft of right femur, initial encounter for closed fracture; R40.2312 Coma scale, best motor response, none, at arrival to emergency department; R40.2112 Coma scale, eyes open, never, at arrival to emergency department; J96.00 Acute respiratory failure, unspecified whether with hypoxia or hypercapnia; J15.6 Pneumonia due to other Gram-negative bacteria; G93.41 Metabolic encephalopathy; G93.6 Cerebral edema; S02.19XA Other fracture of base of skull, initial encounter for closed fracture; S02.40EA Zygomatic fracture, right side, initial encounter for closed fracture; S02.69XA Fracture of mandible of other specified site, initial encounter for closed fracture; S06.0X9A Concussion with loss of consciousness of unspecified duration, initial encounter; S02.413A LeFort III fracture, initial encounter for closed fracture; S02.412A LeFort II fracture, initial encounter for closed fracture; S02.0XXA Fracture of vault of skull, initial encounter for closed fracture; S12.000A Unspecified displaced fracture of first cervical vertebra, initial encounter for closed fracture; S12.500A Unspecified displaced fracture of sixth cervical vertebra, initial encounter for closed fracture; S22.41XA Multiple fractures of ribs, right side, initial encounter for closed fracture; S46.921A Laceration of unspecified muscle, fascia and tendon at shoulder and upper arm level, right arm, initial encounter; D62 Acute posthemorrhagic anemia; F23 Brief psychotic disorder; Z51.5 Encounter for palliative care; Z20.828 Contact with and (suspected) exposure to other viral communicable diseases; S52.571B Other intraarticular fracture of lower end of right radius, initial encounter for open fracture type I or II; S52.591A Other fractures of lower end of right radius, initial encounter for closed fracture; S42.101A Fracture of unspecified part of scapula, right shoulder, initial encounter for closed fracture; V23.4XXA Motorcycle driver injured in collision with car, pick-up truck or van in traffic accident, initial encounter; E83.51 Hypocalcemia; S62.015A Nondisplaced fracture of distal pole of navicular [scaphoid] bone of left wrist, initial encounter for closed fracture; S62.512A Displaced fracture of proximal phalanx of left thumb, initial encounter for closed fracture; S01.411A Laceration without foreign body of right cheek and temporomandibular area, initial encounter; S02.2XXA Fracture of nasal bones, initial encounter for closed fracture; S42.131A Displaced fracture of coracoid process, right shoulder, initial encounter for closed fracture; E87.6 Hypokalemia; E83.42 Hypomagnesemia; E83.39 Other disorders of phosphorus metabolism
CPT/HCPCS: 20030; 25605; 36415; 36416; 36430; 36556; 51702; 70450; 70486; 70496; 70498; 71045; 71260; 72125; 74177; 76000; 76377; 80048; 80053; 80076; 80306; 80307; 81003; 81015; 82550; 82553; 82805; 83605; 83690; 83735; 84100; 84484; 85014; 85018; 85025; 85049; 86850; 86900; 86901; 87040; 87070; 87077; 87186; 87205; 87635; 90471; 90715; 93005; 93010; 93306; 94002; 94003; 94640; 96365; 96367; 96368; 96375; 96376; C1713; G0390; J0690; J0696; J1100; J1200; J1630; J1650; J2250; J2270; J2370; J2543; J2704; J3010; J3370; J3475; J3480; J3490; J7050; J7620; L4386; P9016; Q9967; S0020; S0028; U0003